=== PATIENT | female | born 1940 | race Caucasian/White ===

== ENCOUNTER → 2020-07-11 | Outpatient (CLI) | payer MEDICARE ==
--- NOTE | 2020-07-13 11:29 | RAD ---
DATE: 07/11/2020 2:36 PM EXAM: DIGITAL SCREEN BILAT W/CAD HISTORY: Screening COMPARISON: 01/12/2016 Bilateral full field craniocaudal and mediolateral oblique images were obtained using digital technique. This study was interpreted with the benefit of Computerized Aided Detection (CAD). FINDINGS: Breast Density: HETERO The breast parenchyma Is heterogeneously dense, which could reduce sensitivity of mammography. Breast parenchyma level C A round isodense 8mm mammographic mass with obscured margins shows interval increase in central calcifications and slight increase in size. It appears to localize to the 6:00 subareolar right breast, approximately 3 cm from the nipple. It needs additional imaging with full-field right ML view, spot compression CC and ML views and targeted right breast ultrasound. IMPRESSION: Right breast mass, findings for which additional imaging is advised. BI-RADS CATEGORY: 0 INCOMPLETE: NEEDS ADDITIONAL IMAGING EVALUATION AND/OR PRIOR MAMMOGRAMS FOR COMPARISON. RECOMMENDED FOLLOW-UP: ADD ADDITIONAL IMAGING The patient will be contacted to return for additional imaging and a supplemental report will follow. PQRS compliance statement: Patient information was entered into a reminder system with a target due date for the next mammogram. Mammography is a sensitive method for finding small breast cancers, but it does not detect them all and is not a substitute for careful clinical examination. A negative mammogram does not negate a clinically suspicious finding and should not result in delay in biopsying a clinically suspicious abnormality. "Our facility is accredited by the [employer] Mammography [employer]."
== END ==
LOC: MAMMO 14:31
PROVIDERS: ATTEND Nurse Practitioner Family
DX: Z12.31 Encounter for screening mammogram for malignant neoplasm of breast (principal)
CPT/HCPCS: 77067

== ENCOUNTER → 2020-07-27 | Outpatient (CLI) | payer MEDICARE ==
--- NOTE | 2020-07-28 08:46 | RAD ---
DATE: 07/27/2020 EXAM: DIGITAL DIAGNOSTIC RT, BREAST RIGHT HISTORY: Recall from screening mammogram for right breast mass and calcifications. COMPARISON: Screening mammogram 07/11/2020. Diagnostic right breast mammogram 01/12/2016, 06/19/2015. Screening mammogram 06/06/2015 Breast Density: SCATTERED The breast parenchyma shows scattered fibroglandular densities. Breast parenchyma level B. FINDINGS: The mass at 6:00, 4.5 cm from the nipple persists on spot compression persists. This measures approximately 6 mm and has partially obscured margins. This is unchanged in size from 2016. On spot magnification views, there are benign appearing calcifications in the mass and in the retroareolar region. ULTRASOUND: At 7:00, 3 cm from the nipple, there is a hypoechoic 6 mm ovoid circumscribed mass with posterior acoustic enhancement. No internal vascularity. This likely correlates with the mammographic finding. No axillary lymphadenopathy. IMPRESSION: Circumscribed hypoechoic 6 mm mass at 7 o'clock, 3 cm from the nipple. This likely correlates with the mammographic abnormality, which has been stable in size since 2016 and has benign-appearing calcifications. 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 Recommend 6 month follow-up ultrasound to ensure sonographic stability. BI-RADS CATEGORY: 3 PROBABLY BENIGN FINDING(S)-SHORT INTERVAL FOLLOW-UP SUGGESTED RECOMMENDED FOLLOW-UP: 6M 6 MONTH FOLLOW-UP PQRS compliance statement: Patient information was entered into a reminder system with a target due date for the next mammogram. Mammography is a sensitive method for finding small breast cancers, but it does not detect them all and is not a substitute for careful clinical examination. A negative mammogram does not negate a clinically suspicious finding and should not result in delay in biopsying a clinically suspicious abnormality. "Our facility is accredited by the [employer] Mammography [employer]."
== END ==
LOC: MAMMO 11:39
PROVIDERS: ATTEND Nurse Practitioner Family
DX: R92.8 Other abnormal and inconclusive findings on diagnostic imaging of breast (principal); N63.10 Unspecified lump in the right breast, unspecified quadrant
CPT/HCPCS: 76641; 77065

== ENCOUNTER → 2020-08-01 | Outpatient (CLI) | payer MEDICARE ==
--- NOTE | 2020-08-01 13:36 | RAD ---
CT LOW DOSE LUNG SCREEN INDICATION: Reason: TOBACCO USE X 58 YEARS, 1 PACK A DAY, NO FAM H/O/ LUNG CA SCREEN COMPARISON STUDY: None. TECHNIQUE: Unenhanced axial images were obtained through the lungs and upper abdomen using low dose technique. Coronal and sagittal multiplanar reformatted images were also obtained. PQRS compliance statement: One or more of the following individualized dose reduction techniques were utilized for this examinat ion: 1. Automated exposure control 2. Adjustment of the mA and/or kV according to patient size 3. Use of iterative reconstruction technique FINDINGS: Lung Nodules: Few small indeterminate pulmonary nodules with branch customer service representative nodules as follows: Right upper lobe 2 mm nodules (series 2 images 80 and 82). Calcified pulmonary granulomas. Lungs and Airways: No pulmonary mass or consolidation. Centrilobular emphysema. Normal central airway s. Pleura: Normal pleural spaces. Heart and Mediastinum: The visualized portions of the thyroid gland are normal in size and attenuatio n. No axillary or supraclavicular lymphadenopathy. No mediastinal, hilar or retrocrural lymphadenopat hy. Normal cardiac size. Coronary artery atherosclerotic disease. Atherosclerosis of the thoracic aor ta. Abdomen: The visualized abdominal organs demonstrate no abnormality. Bones and Soft Tissues: The visualized skeletal structures and soft tissues of the chest wall are wit hin normal limits. IMPRESSION: 1. Few small indeterminate pulmonary nodules. Lung-RADS Category: 2 Management Recommendation: Follow up low-dose chest CT in one year. 2. Centrilobular emphysema. 3. Coronary artery atherosclerotic disease. Electronically signed by: Ben Pichardo MD (08/01/2020 1:33 PM) [id number]
== END ==
LOC: CT 10:46
PROVIDERS: ATTEND Internal Medicine
DX: Z12.2 Encounter for screening for malignant neoplasm of respiratory organs (principal); J43.2 Centrilobular emphysema; I25.10 Atherosclerotic heart disease of native coronary artery without angina pectoris; F17.210 Nicotine dependence, cigarettes, uncomplicated
CPT/HCPCS: 71271